=== PATIENT | male | born 1975 | race Caucasian/White ===

== ENCOUNTER 2019-12-19 10:33 | Outpatient (CLI) | payer OTHER, SELFPAY ==
[2019-12-19 11:43] LABS: Cholesterol 124 mg/dL (0-200); HDL Direct 35 mg/dL; Triglycerides 110 mg/dL (<150)
[2019-12-19 11:54] LABS: LDL Cholesterol Direct 86 mg/dL
[2019-12-19 12:00] LABS: Alanine Aminotransferase 40 U/L (4-50); Albumin Level 4.7 g/dL (3.5-5.1); Alkaline Phosphatase 65 U/L (38-126); Aspartate Amino Transferase 31 U/L (17-59); Bilirubin,Total 0.9 mg/dL (0.2-1.3); Blood Urea Nitrogen 15 mg/dL (9-20); Calcium 9.2 mg/dL (8.4-10.2); Carbon Dioxide 24 mmol/L (22-30); Chloride 103 mmol/L (98-107); Estimated Glomerular Filt Rate > 60; Glucose 91 mg/dL (75-110); Potassium 4.3 mmol/L (3.4-5.0); Sodium 140 mmol/L (137-145)
== END 2019-12-19 10:34 | disposition home or self-care (01) ==
PROVIDERS: PCP Internal Medicine; Visit Provider Internal Medicine Cardiovascular Disease
DX: E78.5 Hyperlipidemia, unspecified (principal)
CPT/HCPCS: 36415; 80053; 80061

== ENCOUNTER 2020-09-20 09:47 | Observation (INO) | payer OTHER, SELFPAY ==
[2020-09-20] VITALS (11 sets, daily range): BP systolic 117–218; BP diastolic 72–98; PULSE 59–70; RESP 14–20; TEMP 36.3–36.6; O2SAT 95–100; BMI 32.5
--- NOTE | ~2020-09-20 | XR_ITS ---
EXAMINATION: XR chest 2V DATE: 09/20/2020 10:33 INDICATION: Anterior chest pain. TECHNIQUE: Frontal and lateral views of the chest were obtained. COMPARISON: Chest 2 views 01/22/18 FINDINGS: The chest demonstrates clear lungs without pneumonia, pleural effusion, or pneumothorax. Th e heart size is normal. IMPRESSION: 1. No acute cardiopulmonary disease. Reviewed, dictated and finalized at location B. LE R12 DEVELOPER
--- NOTE | 2020-09-20 09:57 | ECG_ITS ---
Measurements Intervals [place] Rate: 62 P: 24 UT: 158 QRS: -14 QRSD: 121 T: 12 QT: 392 QTc: 401 Interpretive Statements SINUS RHYTHM INCOMPLETE RIGHT BUNDLE BRANCH BLOCK BASELINE ARTIFACT- I, III, AVR, AVL, AVF, V1-V6 BORDERLINE ECG Electronically Signed On 09-20-2020 10:30:12 MATERIALS HANDLER by David Aguirre D.O.
[2020-09-20] MEDS: ASPIRIN 325 MG TABLET 243 MG PO (10:08)
[2020-09-20 10:09] LABS: Basophils Percent Auto 0.5 % (0.2-1.2); Eosinophils Percent Auto 0.6 % (0-4.4); Hematocrit 49.1 % (42.0-52.0); Hemoglobin 16.9 g/dL (14.0-18.0); Immature Granulocyte Absolute 0.05 K/mm3 (0.00-0.031); Immature Granulocyte Percent A 0.8 % (0-0.5); Lymphocytes Absolute Auto 1.54 K/mm3 (0.9-3.2); Lymphocytes Percent Auto 23.6 % (18.3-44.2); Mean Corpuscular HGB Conc 34.4 g/dl (32-36); Mean Corpuscular Hemoglobin 32.1 pg (26-34); Mean Corpuscular Volume 93.3 fl (80-100); Mean Platelet Volume 10.1 fl (7.4-10.4); Monocytes Absolute Auto 0.6 K/mm3 (0.1-0.6); Monocytes Percent Auto 9.8 % (2.6-8.5); Neutrophils Absolute Auto 4.2 K/mm3 (1.3-6.7); Neutrophils Percent Auto 64.7 % (45.5-73.1); Platelet Count Result 231 k/mm3 (150-375); Red Blood Count 5.26 M/mm3 (4.6-6.20); Red Cell Distribution Width 12.8 % (11.5-14.5); White Blood Count 6.5 K/mm3 (4.5-10.0)
[2020-09-20 10:19] LABS: INR 0.9; Prothrombin Time 12.5 Seconds (11.1-14.7)
[2020-09-20 10:20] LABS: Partial Thromboplastin Time 27.6 SECONDS (22.3-36.8)
[2020-09-20 10:21] LABS: Anion Gap 7 mmol/L (8-16); Blood Urea Nitrogen 18 mg/dL (9-20); Calcium 9.6 mg/dL (8.4-10.2); Carbon Dioxide 30 mmol/L (22-30); Chloride 101 mmol/L (98-107); Estimated CRCL calculation 118 ml/min; Estimated Glomerular Filt Rate > 60; Glucose 104 mg/dL (75-110); Potassium 4.2 mmol/L (3.4-5.0); Sodium 138 mmol/L (137-145)
[2020-09-20 10:33] LABS: Troponin I < 0.012 ng/mL (0.000-0.034)
--- NOTE | 2020-09-20 11:19 | ED.CHESTPAIN ---
HPI - Chest Pain General Chief Complaint: Chest Pain Stated Complaint: Chest Pain Time Seen by Provider: 09/20/20 10:03 Source: patient Mode of arrival: ambulatory Limitations: no limitations History of Present Illness HPI narrative: 45 years old white male presents with left chest pain and hot flashes today. While driving. Lasted for 2 minutes then resolve. History of intermittent palpitation for the last 2 weeks. Patient denies any fever, chills, nausea, vomiting, shortness of breath, back pain. Patient denies any stress or anxiety. Patient reports a history of [place] twice Patient also reports that a lot of men in his family of heart attack. Related Data Home Medications Medication Instructions Recorded Confirmed aspirin 81 mg tablet,delayed 81 mg PO DAILY 12/19/19 06/07/20 release nitroglycerin 0.4 mg/hr 1 patch TRANSDERM DAILY 12/19/19 06/07/20 transdermal 24 hour patch Allergies Allergy/AdvReac Type Severity Reaction Status Date / Time Penicillins Allergy Unknown unknown Verified 09/20/20 10:06 Review of Systems Review of Systems: Narrative: CONSTITUTIONAL: Denies fever, chills, or sweats. EYES: Denies visual changes, redness, or discharge. ENT: Denies rhinorrhea, congestion, sore throat, or otalgia. CARDIOVASCULAR: Chest pain RESPIRATORY: Denies cough or dyspnea. GASTROINTESTINAL: Denies abdominal pain, nausea, vomiting, or diarrhea. GENITOURINARY: Denies dysuria or hematuria. SKIN: Denies rash or itching. MUSCULOSKELETAL: Denies back pain, joint pain, or myalgia. NEUROLOGIC: Denies headache, numbness, or weakness. PSYCHIATRIC: Denies anxiety or depression. PMFSH Past Medical History Medical History Dyslipidemia Family history of coronary artery disease Hypertension Tobacco use Family History Family History Mother Hypertension Father Family history of coronary artery disease Family history of premature coronary heart disease, Onset Age: 45 Social History Social History Years smoked: 1 Smoking status: Former smoker Tobacco type: cigarettes Smoking end date: 10/12/13 Alcohol intake: never Gender identity (if verbalized by the patient): Male Exam Narrative: Exam Narrative: General appearance: Well-developed, well-nourished Skin: Normal color Head: Normocephalic, nontraumatic Eyes: Clear conjunctiva ENT: Oropharynx normal, ears normal, nose normal Neck: Supple, nontender Chest and respiratory: Airway patent, no respiratory distress, no accessory muscle use Heart: Regular rate/rhythm Abdomen: Soft, nontender, no organomegaly, quiet bowel sounds Vascular: Normal peripheral pulses, normal capillary refill. Musculoskeletal: Normal range of motion, nontender back Neurologic: Alert and oriented ?3, CLINIC OFFICE MANAGER is normal as tested, no gross motor deficit Course Course Emergency Course: Stable Consultations Consultation #1: Dr. Aguirre Date: 09/20/20 Time: 11:28 Vital Signs Vital signs: Vital Signs Pulse Rate 62 09/20/20 10:00 Respiratory Rate 19 09/20/20 10:00 Blood Pressure 141/81 H 09/20/20 10:00 Pulse Oximetry 97 09/20/20 10:00 Temperature 36.6 C 09/20/20 10:01 Pulse Rate 67 09/20/20 10:01 Respiratory Rate 18 09/20/20 10:01 Blood Pressure 218/98 H 09/20/20 10:01 Pulse Oximetry 100 09/20/20 10:01 MDM - Chest Pain MDM Narrative Medical decision making narrative: Patient presents with chest pain, palpitation. Strong family history of coronary artery disease, patient had history of [place] twice in the past. Raises the suspicious for coronary artery synd
[2020-09-20] MEDS: MORPHINE SULFATE (*CRX) 4 MG/ML INJ IV PUSH (11:35)
--- NOTE | 2020-09-20 11:35 | PC.NURSE ---
Per EDP VORB no Nitro paste needed at this time. Patient is chest pain free, and to hold medication until chest pain occurs.
[2020-09-20] MEDS: ONDANSETRON INJ 4 MG/2 ML VIAL IV PUSH (11:36)
[2020-09-20] MEDS: ENOXAPARIN 120 MG/0.8 ML SYRINGE 110 MG SUB-Q (11:36)
[2020-09-20 12:07] LABS: Cholesterol 223 mg/dL (0-200); HDL Direct 37 mg/dL; Triglycerides 233 mg/dL (<150)
[2020-09-20 12:18] LABS: LDL Cholesterol Direct 135 mg/dL
--- NOTE | 2020-09-20 12:22 | PM.CNCAR ---
Assessment and Plan Assessment and plan (1) Hypertension: Code(s): I10 - Essential (primary) hypertension Status: Acute Assessment and Plan: Stable. (2) Dyslipidemia: Code(s): E78.5 - Hyperlipidemia, unspecified Status: Acute Assessment and Plan: Obtain lipid panel. If high, will change Simvastatin to Atorvastatin 80 mg daily. (3) Chest pain: Code(s): R07.9 - Chest pain, unspecified Status: Acute Assessment and Plan: Had chest discomfort associated with feeling warmth/palpitations/lightheadedness which could be vasovagal episode or arrhythmia. First set of troponin and EKG are normal. Continue with serial troponins. If negative, obtain stress echo in morning. History of Present Illness History of Present Illness Consult date/time: 09/20/20 12:22 Reason for consult: Chest pain. Patient is a 45 yr old man who is my regular cardiology patient who presents for a follow up visit regarding his cardiovascular status. He has a history of hypertension, dyslipidemia, family history of CAD. Reports that this morning he felt palpitations associated with chest pressure and feeling warmth and got lightheaded while driving. 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 Currently he is resting comfortably in ED. No more symptoms. EKG, CXR, and first set of troponin are unremarkable. He can walk 1 mile without any problems. Denies orthopnea, PND, edema, palpitations. Echo (EF 55-60%, trace PI.) - 07/25/2015 ELECTROPHYSIOLOGY: EKG (Sinus rhythm, RBBB.) - 08/10/2017 EKG (Sinus rhythm, IRBBB, borderline T wave inferior leads.) - 07/05/2015 STRESS TESTS: MPI (Treadmill nuclear: Negative for ischemia; exercised for 11 minutes.) - 08/10/2017 ETT (Negative for ischemia; exercised for 10 min, 38 seconds.) - 07/25/2015 Reason For Visit: Chest Pain Review of Systems Constitutional: Constitutional: Denies chills, Denies fatigue and Denies fever(s) Cardiovascular: Cardiovascular: Reports as per HPI, Reports chest pain, Reports irregular heart rhythm, Denies leg edema and Denies dyspnea on exertion Respiratory: Respiratory: Reports as per HPI and Denies dyspnea on exertion Gastrointestinal: Gastrointestinal: Reports as per HPI and Denies abdominal pain Genitourinary: Genitourinary: Reports as per HPI and Denies dysuria Musculoskeletal: Musculoskeletal: Reports as per HPI Neurologic: Reports as per HPI, Reports dizziness and Denies syncope [facility] Past Medical History Medical History Dyslipidemia Family history of coronary artery disease Hypertension Tobacco use Family History Family History Mother Hypertension Father Family history of coronary artery disease Family history of premature coronary heart disease, Onset Age: 45 Social History Social History Years smoked: 1 Smoking status: Former smoker Tobacco type: cigarettes Smoking end date: 10/12/13 Alcohol intake: never Gender identity (if verbalized by the patient): Male Meds Home Medications and Allergies Home Medications Medication Instructions Recorded Confirmed Type aspirin 81 mg tablet,delayed 81 mg PO DAILY 12/19/19 06/07/20 History release nitroglycerin 0.4 mg/hr 1 patch TRANSDERM DAILY 12/19/19 06/07/20 History transdermal 24 hour patch amlodipine 2.5 mg tablet See Rx Instructions .ROUTE 07/09/20 Rx .COMPLEX #30 tablet metoprolol succinate 25 mg See Rx Instructions .ROUTE 08/31/20 Rx tablet,extended release 24 hr .COMPLEX #30 tablet simvastatin 40 mg tablet See Rx Instructions .ROUTE 08/31/20 Rx .COMPLEX #30 tablet Allergies Allergy/AdvReac Type Severity Reaction Status Date / Time Penicillins Allergy Unknown unknown Verified 09/20/20 10:06 Vital Signs Vital Signs - 24 hr 09/20/20 10:00 09/20/20 10:01 09/20/20 10:41 Temperature 97.9 F
--- NOTE | 2020-09-20 13:00 | PM.IMHP ---
H&P: HPI History of Present Illness Date/Time: 09/20/20 13:00 Chief complaint: Chest Pain Narrative: Jose Rocha is a 45-year-old male with history of non STEMI in September 2010 in which he was found to have nonocclusive plaquing on subsequent cardiac catheterization, dyslipidemia, and hypertension who presented to the emergency department earlier today from home for evaluation of chest pain. For the last 1 week or so he has had intermittent discomfort in his midsternal and left chest region which he describes as a pressure-like sensation. He sees no pattern to when they occur and he has not noticed any significant aggravating or alleviating factors. This morning while driving he had another episode, associated with feelings of warmth, lightheadedness, and diaphoresis. With further questioning he does mention having gained some weight recently, and he is wondering if perhaps he may have sleep apnea as he does snore and will occasionally wake up gasping for air. In fact he is been increasingly more tired during the day and for the last couple of weeks he has been drinking a red bull most mornings to help with his sleepiness. He has not noticed any overt palpitations or feelings of racing heart. No exertional chest pain or shortness of breath. He denies nausea and vomiting. No pleuritic pain or lower extremity edema. Review of Systems Review of Systems: Narrative: Twelve systems were reviewed with pertinent positives and negatives as per HPI. Except as documented, all other systems were reviewed and are negative. [facility] Past Medical History Medical History (Updated 09/20/20 @ 22:33 by Zahra Kaur PA-C) Dyslipidemia Hypertension Non-occlusive coronary artery disease (~09/2010) Admitted 10/04/2010 with non STEMI. Cardiac catheterization showed mild nonocclusive plaquing requiring no intervention but medical management. He had a negative exercise stress test in 07/2015 and 07/2017. Surgical History Surgical History (Updated 09/20/20 @ 13:45 by Zahra Kaur PA-C) History of cardiac catheterization (~09/2010) Mild nonocclusive plaquing with approximately 20% stenosis in the proximal LAD and circumflex with mild anterolateral hypokinesis and an EF of 60%. Family History Family History Mother Hypertension Family history of coronary artery disease Father Family history of coronary artery disease Family history of premature coronary heart disease, Onset Age: 45 Social History Social History (Updated 09/20/20 @ 22:31 by Zahra Kaur PA-C) Social History: Surrogate decision maker: Madai Rocha, . Code status: Full code. Smoking status: Former smoker Tobacco type: cigarettes Smoking end date: 10/12/13 Alcohol intake: never Substance use: never Additional living arrangements comments: Lives in [place] with his and their children. Additional occupation/education comments: Works in [employer] and [employer]. Gender identity (if verbalized by the patient): Male Spiritual care concerns: No Meds Home Medications and Allergies Home Medications Medication Instructions Recorded Confirmed Type aspirin 81 mg tablet,delayed 81 mg PO DAILY 12/19/19 06/07/20 History release nitroglycerin 0.4 mg/hr 1 patch TRANSDERM DAILY 12/19/19 06/07/20 History transdermal 24 hour patch amlodipine 2.5 mg PO DAILY 09/20/20 09/20/20 History metoprolol succinate 25 mg PO DAILY 09/20/20 09/20/20 History simvastatin 40 mg PO DAILY 09/20/20 09/20/20 History Allergies Allergy/AdvReac Type Severity Reaction Status Date / Time Penicillins Allergy Unknown unknown Verified 09/20/20 10:06 Vital Signs Vital Signs - 24 hr 09/20/20 10:00 09/20/20 10:01 09/20/20 10:41 Temperature 97.9 F Pulse Rate 62 67 60 Respiratory Rate 19 18 20 Blood Pressure 141/81 H 218/98 H 137/88 Pulse Oximetry 97 99 97 1
[2020-09-20 14:58] LABS: Alanine Aminotransferase 51 U/L (4-50); Albumin Level 4.3 g/dL (3.5-5.1); Alkaline Phosphatase 61 U/L (38-126); Aspartate Amino Transferase 40 U/L (17-59); Bilirubin,Total 0.7 mg/dL (0.2-1.3); Magnesium 2.1 mg/dL (1.6-2.3)
[2020-09-20 15:10] LABS: Troponin I < 0.012 ng/mL (0.000-0.034)
[2020-09-20 17:02] LABS: Troponin I < 0.012 ng/mL (0.000-0.034)
[2020-09-21] VITALS (10 sets, daily range): BP systolic 131–140; BP diastolic 63–89; PULSE 59–75; RESP 16–18; TEMP 36.7–37.2; O2SAT 95–98
--- NOTE | 2020-09-21 08:00 | EST_ITS ---
Patient Info Name: Jose Rocha Age: 45 years : 1975 Gender: Male Ht: 72 in Wt: 239 lbs BSA: 2.38 m2 HR: 59 bpm BP: 125 / 65 mmHg Heart Rhythm: Sinus Rhythm Exam Date: 09/21/2020 8:12 AM Exam Location: [facility] Patient Status: Inpatient Admit Date: 09/20/2020 Staff Ordering Physician: David Aguirre DO Woodwork Salvage Inspector: Miri Murphy RDCS Attending Provider: Karen Anderson MD Exercise Technologist: Karis Roberto RDCS Exercise Physician: David Aguirre DO Exam Type: CA stress echo Study Info Indications R07.89 - Other chest pain Treadmill exercise stress echocardiogram is performed. Summary 1. 1. Negative Kirt exercise stress test for ischemic ST changes by ECG criteria. 2. 2. Good functional capacity, achieving 12 METs of workload. 3. 3. Hypertensive response to exercise. 4. 4. Appropriate HR response to exercise. 5. 5. Appropriate HR recovery at 1 minute post exercise. 6. 6. Negative stress echocardiogram for ischemia by wall motion analysis. 7. 7. Patient informed of the above results. Stress Echo Findings Left Ventricle Appropriate increase in LV endocardial thickening with systole. Appropriate augmentation of contractility with systole. No wall motion abnormality. Left Ventricle Normal LV systolic function, no wall motion abnormality. Protocol: Kirt Stress ECG Details Stage: REST Duration (min): 3 min : 11 sec Speed (mph): 0.0 Grade (%): 0 HR (bpm): 60 SBP (mmHg): 125 DBP (mmHg): 65 METS: --- Stage: REST Duration (min): 9 min : 49 sec Speed (mph): 0.0 Grade (%): 0 HR (bpm): 70 SBP (mmHg): 125 DBP (mmHg): 65 METS: --- Stage: STAGE 1 Duration (min): 1 min : 0 sec Speed (mph): 1.7 Grade (%): 10 HR (bpm): 100 SBP (mmHg): 125 DBP (mmHg): 65 METS: --- Stage: STAGE 1 Duration (min): 2 min : 0 sec Speed (mph): 1.7 Grade (%): 10 HR (bpm): 101 SBP (mmHg): 125 DBP (mmHg): 65 METS: --- Stage: STAGE 1 Duration (min): 3 min : 0 sec Speed (mph): 1.7 Grade (%): 10 HR (bpm): 107 SBP (mmHg): 164 DBP (mmHg): 68 METS: --- Stage: STAGE 2 Duration (min): 1 min : 0 sec Speed (mph): 2.5 Grade (%): 12 HR (bpm): 114 SBP (mmHg): 164 DBP (mmHg): 68 METS: --- Stage: STAGE 2 Duration (min): 2 min : 0 sec Speed (mph): 2.5 Grade (%): 12 HR (bpm): 115 SBP (mmHg): 159 DBP (mmHg): 71 METS: --- Stage: STAGE 2 Duration (min): 3 min : 0 sec Speed (mph): 2.5 Grade (%): 12 HR (bpm): 122 SBP (mmHg): 159 DBP (mmHg): 71 METS: --- Stage: STAGE 3 Duration (min): 1 min : 0 sec Speed (mph): 3.4 Grade (%): 14 HR (bpm): 127 SBP (mmHg): 240 DBP (mmHg): 120 METS: --- Stage: STAGE 3 Duration (min): 2 min : 0 sec Speed (mph): 3.4 Grade (%): 14 HR (bpm): 134 SBP (mmHg): 209 DBP (mmHg): 75 METS: --- Stage: STAGE 3 Dur
--- NOTE | 2020-09-21 08:08 | PC.NURSE ---
0750 - Pt off unit to Stress testing
[2020-09-21 08:12] LABS: Anion Gap 4 mmol/L (8-16); Blood Urea Nitrogen 17 mg/dL (9-20); Calcium 9.1 mg/dL (8.4-10.2); Carbon Dioxide 25 mmol/L (22-30); Chloride 106 mmol/L (98-107); Estimated CRCL calculation 122 ml/min; Estimated Glomerular Filt Rate > 60; Glucose 107 mg/dL (75-110); Magnesium 2.2 mg/dL (1.6-2.3); Phosphorus 2.7 mg/dL (2.5-4.5); Potassium 4.4 mmol/L (3.4-5.0); Sodium 135 mmol/L (137-145)
--- NOTE | 2020-09-21 08:32 | PM.PNCARD ---
Progress Note: A&P Assessment and Plan (1) Hypertension: Code(s): I10 - Essential (primary) hypertension Status: Acute Assessment and Plan: Mildly high and had hypertensive response to exercise on stress echo. Increase Amlodipine 5 mg daily. (2) Dyslipidemia: Code(s): E78.5 - Hyperlipidemia, unspecified Status: Acute Assessment and Plan: Change Simvastatin to Atorvastatin 80 mg daily for high cholesterol. (3) Chest pain: Code(s): R07.9 - Chest pain, unspecified Status: Acute Assessment and Plan: Had chest discomfort associated with feeling warmth/palpitations/lightheadedness which could be vasovagal episode or arrhythmia, or stress related. He is ruled out for ACS/WV by troponins and EKG. Stress echo this morning is normal with a hypertensive response to exercise. May d/c home from cardiology standpoint to f/u with me in 3 weeks. Subjective Date/time seen: 09/21/20 08:32 Denies any chest pain or sob. Exam Const: General: cooperative, healthy appearing and comfortable Resp: Auscultation: clear to auscultation bilaterally, no crackles, no rales, no rhonchi and no wheezes Cardio: Rate: regular rate Rhythm: regular rhythm Heart sounds: no murmurs Peripheral pulses: posterior tibial pulses present and dorsalis pedis present GI: GI Palp: No abdominal tenderness and Yes Soft to palpation Neuro: General: oriented to person, oriented to place and oriented to time Extrem: Right lower extremity: no edema Left lower extremity: no edema Objective Data Vital Signs Vital Signs: Vital Signs - 24 hr 09/20/20 10:00 09/20/20 10:01 09/20/20 10:41 Temperature 97.9 F Pulse Rate 62 67 60 Respiratory Rate 19 18 20 Blood Pressure 141/81 H 218/98 H 137/88 Pulse Oximetry 97 99 97 09/20/20 10:46 09/20/20 11:16 09/20/20 11:31 Temperature Pulse Rate 60 63 59 L Respiratory Rate 16 20 17 Blood Pressure 149/92 H 159/93 H 149/84 H Pulse Oximetry 98 95 95 09/20/20 12:22 09/20/20 13:00 09/20/20 16:00 Temperature 97.3 F L Pulse Rate 68 70 63 Respiratory Rate 16 14 16 Blood Pressure 131/86 145/85 H 148/76 H Pulse Oximetry 96 100 95 09/20/20 18:00 09/20/20 20:00 09/21/20 00:00 Temperature 97.6 F 98.5 F Pulse Rate 69 66 61 Respiratory Rate 18 16 Blood Pressure 117/72 131/63 Pulse Oximetry 100 95 09/21/20 02:00 09/21/20 04:00 09/21/20 05:00 Temperature 98.1 F Pulse Rate 63 59 L 64 Respiratory Rate 17 Blood Pressure 135/68 Pulse Oximetry 95 09/21/20 06:00 Temperature Pulse Rate 59 L Respiratory Rate Blood Pressure Pulse Oximetry Intake/Output Intake/Output: Intake & Output 09/18/20 09/19/20 09/20/20 09/21/20 23:59 23:59 23:59 23:59 Intake Total 800 Balance 800 Meds/Results Medications: Active Medications Generic Name Dose Route Start Last Admin Trade Name Freq PRN Reason Stop Dose Admin Amlodipine Besylate 5 mg 09/21/20 09:00 Amlodipine Besylate 5 Mg Tablet PO QAM [facility] Aspirin 81 mg 09/21/20 08:00 Aspirin 81 Mg Chewable Tablet PO DAILY@0800 [facility] Aspirin 81 mg 09/21/20 09:00 Aspirin 81 Mg Enteric Tablet PO DAILY [facility] Atorvastatin Calcium 80 mg 09/21/20 09:00 Atorvastatin 40 Mg Tablet PO DAILY [facility] Acetaminophen 1,000 mg in 100 mls @ 400 mls/hr 09/20/20 11:30 Ofirmev 1,000 Mg Ivpb IVPB 09/21/20 11:31 Q6H PRN Mild Pain (1-3) or Fever Metoprolol Succinate 25 mg 09/21/20 09:00 Metoprolol Succinate Ext Rel 25 Mg Tabcr PO QAM [facility] Metoprolol Succinate 25 mg 09/21/20 09:00 Metoprolol Succinate Ext Rel 25 Mg Tabcr PO DAILY [facility] Nitroglycerin 1 patch 09/21/20 09:00 Nitroglycerin 0.4 Mg/Hr Patch TRANSDERM DAILY [facility] Radiology Results: ITS Impressions Chest X-Ray 09/20/20 10:34 IMPRESSION: 1. No acute cardiopulmonary disease. Labs Labs: Laboratory Results - last 24 hr 09/20/2009/11
[2020-09-21 08:48] LABS: Thyroid Stimulating Hormone Reflex 0.954 uIU/mL (0.465-4.68)
[2020-09-21] MEDS: amLODIPine BESYLATE 2.5 MG TABLET PO (10:53)
[2020-09-21] MEDS: ATORVASTATIN 40 MG TABLET 80 MG PO (11:20)
[2020-09-21] MEDS: ASPIRIN 81 MG ENTERIC TABLET PO (11:21)
[2020-09-21] MEDS: METOPROLOL SUCCINATE EXT REL 25 MG TABCR PO (11:21)
--- NOTE | 2020-09-21 11:35 | PC.NURSE ---
late entry for 919. Pt returned to room.
--- NOTE | 2020-09-21 14:30 | PM.DS ---
DS: Admitting Diagnosis Admitting Diagnosis Admitting Diagnosis: Chest Pain DS: Discharge Diagnosis Discharge Diagnosis (1) Chest pain: Code(s): R07.9 - Chest pain, unspecified Status: Acute (2) Hypertension: Code(s): I10 - Essential (primary) hypertension Status: Acute (3) Dyslipidemia: Code(s): E78.5 - Hyperlipidemia, unspecified Status: Acute (4) Suspected sleep apnea: Code(s): R29.818 - Other symptoms and signs involving the nervous system Status: Acute DS: Summary Hospital Course Reason for hospitalization: 45yo male with hx of CAD and PR in 2009 here for chest pain. Please see H&P for details. Hospital Course: Patient presents to the emergency department with a one-week history of intermittent chest pain. EKG showing incomplete right bundle branch block but no acute findings. Chest x-ray was clear. CBC, PT, PTT, and BMP were normal. Troponin was negative x3. ALT 51 otherwise LFTs normal. TSH normal. Triglycerides 233 with cholesterol 223 and LDL 135. HDL 37. Simvastatin changed to atorvastatin. Blood pressure was elevated on admission and antihypertensive medications were adjusted. Cardiology was consulted. He was treated with aspirin. He was given a dose of Lovenox and admitted for further care. He underwent a stress echocardiogram which was normal. His apnea link was positive. Discussed with Cardiology. Plan discharge today. Status at Discharge Cognitive/behavioral status at discharge: PATIENT IS STABLE FOR DISCHARGE Time Spent with Patient Time attestation: Total time spent providing and/or coordinating discharge services:38 MINUTES Time spent: Greater than 30 minutes Exam Narrative: Exam Narrative: AF 98.9 134/66 72 16 95% ra Gen - NARD Chest - CTA bilaterally, nml RR CV - RRR S1/S2 Abd - Soft, NT/ND, Positive BS Ext - No pedal edema Neuro - Alert and oriented. Nonfocal exam. Psych - Nml mood and affect Skin - Warm and dry DS: Data Data Completed and Pending Labs on day of discharge: Labs from last 24 hours 09/21/20 09/21/20 09/20/20 07:36 07:36 16:32 Sodium 135 L Potassium 4.4 Chloride 106 Carbon Dioxide 25 Anion Gap 4 L BUN 17 Creatinine 0.90 Estim Creat Clear Calc 122 Estimated GFR > 60 Glucose 107 Calcium 9.1 Phosphorus 2.7 Magnesium 2.2 Total Bilirubin Direct Bilirubin AST ALT Alkaline Phosphatase Troponin I < 0.012 Total Protein Albumin TSH (Reflex) 0.954 09/20/20 09/20/20 14:35 14:35 Sodium Potassium Chloride Carbon Dioxide Anion Gap BUN Creatinine Estim Creat Clear Calc Estimated GFR Glucose Calcium Phosphorus Magnesium 2.1 Total Bilirubin 0.7 Direct Bilirubin 0.0 AST 40 ALT 51 H Alkaline Phosphatase 61 Troponin I < 0.012 Total Protein 8.0 Albumin 4.3 TSH (Reflex) Discharge Plan Discharge Attending physician on discharge: Sabino Zamudio Consulting providers: David Aguirre Discharging Clinician: Sabino Zamudio Anticipated Discharge Date/Time: 09/21/20 14:38 Patient Disposition: Home, Self-Care Activity: as tolerated Diet: heart healthy Discharge Instructions: Please avoid large gathering, wear face coverings in public and practice social distance. Check blood pressure 1 to 2 times a day. Record and bring into your doctor for review. Call your doctor if your blood pressure is greater than 180/110. Contact your doctor or come to the Emergency Room if you have any recurrent chest pain or other worrisome symptoms. Avoid NSAIDs (ibuprofen, naproxen, Aleve). Tylenol is safe to take. Follow-up with your doctor in 1-2 weeks. Please call for appointment. Patient Instructions: Antibiotic Form Stand Alone Forms: General Discharge Information Follow-up/Referrals: David Aguirre DO [Physician] - Call for Appointment Jose Singh DO [Sindhu
== END 2020-09-21 15:54 | disposition home or self-care (01) ==
LOC: ANHED 11:25 → ANHCPC 09-21 14:23
PROVIDERS: Internal Medicine Cardiovascular Disease; Physician Assistant; Admitting Provider Family Medicine; Emergency Provider Emergency Medicine; PCP Internal Medicine; Visit Provider Internal Medicine
DX: R07.9 Chest pain, unspecified (principal); I10 Essential (primary) hypertension; E78.5 Hyperlipidemia, unspecified; R29.818 Other symptoms and signs involving the nervous system; I25.10 Atherosclerotic heart disease of native coronary artery without angina pectoris; I25.2 Old myocardial infarction; Z87.891 Personal history of nicotine dependence
CPT/HCPCS: 36415; 71046; 80048; 80061; 80076; 83735; 84100; 84443; 84484; 85025; 85610; 85730; 93005; 93351; 94762; 96372; 96374; 96375; 99285; A9270; G0378; G0379; J1650; J2270; J2405

== ENCOUNTER 2021-02-19 08:13 | Outpatient (CLI) | payer OTHER, SELFPAY ==
--- NOTE | 2021-03-04 13:16 | WPDHOMESLEEP ---
Sleep Study - Home Unattended Date of Study: 02/19/21 Ordering Provider: David Aguirre DO Interpreting Provider: Nasra Blas MD Home Sleep Study Type: Apnea Link Air Height: 1.83 m Weight: 107.955 kg Body Mass Index: 32.3 Neck Circumference (inches): 17.5 Mercer: 7 Reason for Sleep Study Loud snoring, especially when his weight is high Sleep History Jose Rocha is a 46 year old man who snores loudly especially when his weight is higher. He says above 250 lb he really has a problem. He occasionally awakens from sleep feeling short of breath. He does not awaken at night with heartburn, belching or coughing. He occasionally snores and occasionally it is loud enough that others complain about it. He does not have trouble sleep with a cold. He now weighs 235 lb. He does not have trouble sleeping with a cold. He rarely wakes up gasping for breath at night. He occasionally has breathing problems at night observed by others. He rarely sweats excessively at night. He rarely notices his heart pounding or beating irregularly at night. He rarely falls asleep in the day, never involuntarily and he never falls asleep while driving. He does not have loss of muscle tone was strong emotion. He does not have daytime difficulties due to excessive sleepiness. 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 He does not feel paralyzed on waking or falling asleep. He does not have vivid dreamlike scenes upon awakening or falling asleep. He does not feel afraid to go to sleep. Rarely has nightmares. He occasionally remembers his dreams. He frequently has racing thoughts. He does not feel sad or depressed. On occasion he has anxiety. He does not have muscular tension. He does not notice parts of his body jerking and he does not kick at night. He rarely has crawling and aching feelings in his legs. He does not have any kind of leg pain at night. He denies morning jaw pain and denies grinding his teeth during sleep. He is not bothered by pain during the day and is not awakened by pain during the night. He does not wake up feeling stiff in the morning with sore achy muscles are pain in the neck and spine. Normal bedtime is between 10:00 p.m. and 11:00 p.m., falling asleep within 15-30 minutes. Sometimes he wakes once or twice at night. On occasion he does not wake at all. He uses the bathroom when he wakes up. Sometimes he is able to return to sleep in 5 minutes however can take 20-30 minutes. He does not take naps. Habits: Quit smoking 6 years ago. He drinks caffeinated soda. No alcohol or recreational drugs. [facility] Past Medical History Medical History (Updated 03/04/21 @ 13:56 by Nasra Blas MD) Dyslipidemia Hypertension Non-occlusive coronary artery disease (~09/2010) Admitted 10/04/2010 with non STEMI. Cardiac catheterization showed mild nonocclusive plaquing requiring no intervention but medical management. He had a negative exercise stress test in 07/2015 and 07/2017. Surgical History Surgical History History of cardiac catheterization (~09/2010) Mild nonocclusive plaquing with approximately 20% stenosis in the proximal LAD and circumflex with mild anterolateral hypokinesis and an EF of 60%. Family History Family History Mother Hypertension Family history of coronary artery disease Father Family history of coronary artery disease Family history of premature coronary heart disease, Onset Age: 45 Social History Social History Social History: Surrogate decision maker: Madai Rocha, . Code status: Full code. Smoking status: Former smoker Tobacco type: cigarettes Smoking end date: 10/12/13 Alcohol intake: never Substance use: never Additional living arrangements comments: Lives in [place] with his and t
[2021-03-04 14:00] VITALS: BMI 32.3
== END 2021-02-19 08:14 | disposition home or self-care (01) ==
LOC: ANHCSM 08:14
PROVIDERS: PCP Internal Medicine; Visit Provider Internal Medicine Cardiovascular Disease
DX: G47.10 Hypersomnia, unspecified (principal); G47.33 Obstructive sleep apnea (adult) (pediatric)
CPT/HCPCS: 95806

== ENCOUNTER 2022-07-30 08:59 | Outpatient (CLI) | payer OTHER, SELFPAY ==
[2022-07-30 18:41] LABS: Alanine Aminotransferase 41 U/L (6-50); Albumin Level 4.7 g/dL (3.5-5.1); Alkaline Phosphatase 74 U/L (38-126); Anion Gap 14 mmol/L (8-16); Aspartate Amino Transferase 31 U/L (17-59); Bilirubin,Total 0.9 mg/dL (0.2-1.3); Blood Urea Nitrogen 15 mg/dL (9-20); Calcium 9.4 mg/dL (8.4-10.2); Carbon Dioxide 21 mmol/L (22-30); Chloride 104 mmol/L (98-107); Cholesterol 154 mg/dL (0-200); Estimated Glomerular Filt Rate > 60; Glucose 105 mg/dL (65-110); HDL Direct 31 mg/dL; Potassium 3.7 mmol/L (3.4-5.0); Sodium 139 mmol/L (137-145); Triglycerides 160 mg/dL (<150)
[2022-07-30 18:42] LABS: Basophils Percent Auto 0.3 % (0.2-1.2); Eosinophils Absolute Auto 0.1 K/mm3 (0-0.3); Eosinophils Percent Auto 0.9 % (0-4.4); Hematocrit 47.1 % (42.0-52.0); Hemoglobin 15.8 g/dL (14.0-18.0); Immature Granulocyte Absolute 0.02 K/mm3 (0.00-0.031); Immature Granulocyte Percent A 0.3 % (0-0.5); Lymphocytes Percent Auto 21.9 % (18.3-44.2); Mean Corpuscular HGB Conc 33.5 g/dl (32-36); Mean Corpuscular Hemoglobin 31.9 pg (26-34); Mean Corpuscular Volume 95.2 fl (80-100); Mean Platelet Volume 10.8 fl (7.4-10.4); Monocytes Absolute Auto 0.6 K/mm3 (0.1-0.6); Monocytes Percent Auto 8.9 % (2.6-8.5); Neutrophils Absolute Auto 4.3 K/mm3 (1.3-6.7); Neutrophils Percent Auto 67.7 % (45.5-73.1); Platelet Count Result 244 k/mm3 (150-375); Red Blood Count 4.95 M/mm3 (4.6-6.20); Red Cell Distribution Width 12.7 % (11.5-14.5); White Blood Count 6.4 K/mm3 (4.5-10.0)
[2022-07-30 18:55] LABS: LDL Cholesterol Direct 85 mg/dL
[2022-07-30 19:01] LABS: Vitamin D 25 Hydroxy 39.5 ng/mL
== END 2022-07-30 09:00 | disposition home or self-care (01) ==
LOC: ANHGOSHLAB 09:02
PROVIDERS: PCP Family Medicine; Visit Provider Nurse Practitioner
DX: E55.9 Vitamin D deficiency, unspecified (principal); E78.5 Hyperlipidemia, unspecified; I10 Essential (primary) hypertension
CPT/HCPCS: 36415; 80053; 80061; 82306; 85025

== ENCOUNTER → 2022-08-18 15:32 | Outpatient (CLI) | payer OTHER, SELFPAY ==
--- NOTE | ~2022-08-18 | XR_ITS ---
EXAMINATION: XR chest 2V DATE: 08/18/2022 15:43 INDICATION: Cough, unspecified. TECHNIQUE: Frontal and lateral views of the chest were obtained. COMPARISON: Chest 2 views 09/20/2020 FINDINGS: The chest demonstrates clear lungs without pneumonia, pleural effusion, or pneumothorax. Th e heart size is normal. IMPRESSION: 1. No acute cardiopulmonary disease. Reviewed, dictated and finalized at location A. 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
== END ==
PROVIDERS: PCP Nurse Practitioner; Visit Provider Nurse Practitioner
DX: R05.9 Cough, unspecified (principal)
CPT/HCPCS: 71046

== ENCOUNTER 2023-08-17 08:41 | Outpatient (CLI) | payer OTHER, SELFPAY ==
[2023-08-17 19:34] LABS: Basophils Percent Auto 0.6 % (0.2-1.2); Eosinophils Absolute Auto 0.1 K/mm3 (0-0.3); Hematocrit 48.8 % (42.0-52.0); Hemoglobin 16.1 g/dL (14.0-18.0); Immature Granulocyte Absolute 0.02 K/mm3 (0.00-0.031); Immature Granulocyte Percent A 0.3 % (0-0.5); Lymphocytes Percent Auto 21.4 % (18.3-44.2); Mean Corpuscular Hemoglobin 31.3 pg (26-34); Mean Corpuscular Volume 94.8 fl (80-100); Mean Platelet Volume 10.9 fl (7.4-10.4); Monocytes Absolute Auto 0.7 K/mm3 (0.1-0.6); Monocytes Percent Auto 9.3 % (2.6-8.5); Neutrophils Absolute Auto 4.7 K/mm3 (1.3-6.7); Neutrophils Percent Auto 67.4 % (45.5-73.1); Platelet Count Result 247 k/mm3 (150-375); Red Blood Count 5.15 M/mm3 (4.6-6.20); Red Cell Distribution Width 13.2 % (11.5-14.5)
[2023-08-17 20:06] LABS: Vitamin D 25 Hydroxy 41.4 ng/mL
[2023-08-17 20:54] LABS: Alanine Aminotransferase 66 U/L (6-50); Albumin Level 4.7 g/dL (3.5-5.1); Alkaline Phosphatase 87 U/L (38-126); Anion Gap 8 mmol/L (8-16); Aspartate Amino Transferase 57 U/L (17-59); Bilirubin,Total 0.9 mg/dL (0.2-1.3); Blood Urea Nitrogen 13 mg/dL (9-20); Calcium 9.5 mg/dL (8.4-10.2); Carbon Dioxide 26 mmol/L (22-30); Chloride 104 mmol/L (98-107); Cholesterol 189 mg/dL (0-200); Estimated Glomerular Filt Rate > 60; Glucose 96 mg/dL (65-110); HDL Direct 37 mg/dL; Potassium 4.6 mmol/L (3.4-5.0); Sodium 138 mmol/L (137-145); Triglycerides 194 mg/dL (<150)
[2023-08-17 21:04] LABS: LDL Cholesterol Direct 98 mg/dL
[2023-08-17 21:23] LABS: Prostate Specific Antigen 0.4 ng/mL (< OR = 4.0); Thyroid Stimulating Hormone 0.823 uIU/mL (0.465-4.680)
[2023-08-17 23:12] LABS: Hemoglobin A1C 5.3 % (<5.7)
== END 2023-08-17 08:42 | disposition home or self-care (01) ==
LOC: ANHGOSHLAB 08:42
PROVIDERS: PCP Nurse Practitioner; Visit Provider Nurse Practitioner Family
DX: Z13.29 Encounter for screening for other suspected endocrine disorder (principal); Z13.220 Encounter for screening for lipoid disorders; R73.03 Prediabetes; I10 Essential (primary) hypertension; E55.9 Vitamin D deficiency, unspecified; Z12.5 Encounter for screening for malignant neoplasm of prostate
CPT/HCPCS: 36415; 80053; 80061; 82306; 83036; 84153; 84443; 85025; G0103

== ENCOUNTER 2024-01-20 13:13 | Outpatient (CLI) | payer OTHER, SELFPAY ==
--- NOTE | 2024-01-20 13:22 | ECHO_ITS ---
Patient Info Name: Jose Rocha Age: 48 years : 1975 Gender: Male Ht: 72 in Wt: 250 lbs BSA: 2.44 m2 HR: 77 bpm BP: 131 / 87 mmHg Heart Rhythm: Sinus Rhythm Technical Quality: Good Exam Date: 01/20/2024 1:25 PM Exam Location: Echo Lab Patient Status: Outpatient Admit Date: 01/20/2024 Staff Ordering Physician: David Aguirre DO Wax Pumper: Bre Dhillon RDCS Attending Provider: David Aguirre DO Referring Physician: Timothy ABURTO; Exam Type: CA echo doppler color flow Study Info Indications I10 - Essential (primary) hypertension Complete two-dimensional, color flow and Doppler transthoracic echocardiogram is performed. Summary 1. Complete two-dimensional, color flow and Doppler transthoracic echocardiogram is performed. 2. Left ventricular chamber dimension is normal. 3. Left ventricular systolic function is normal, estimated at 60-65%. 4. There is mild concentric increased left ventricular wall thickness. 5. The left ventricular diastolic function is grade II diastolic dysfunction. 6. E/e' 8 is minimally elevated. 7. There is trace tricuspid valve regurgitation. 8. No pulmonary hypertension, estimated pulmonary arterial systolic pressure is 24 mmHg. Left Ventricle E/e' 8 is minimally elevated. Left ventricular chamber dimension is normal. Left ventricular systolic function is normal, estimated at 60-65%. There is mild concentric increased left ventricular wall thickness. The left ventricular diastolic function is grade II diastolic dysfunction. Right Ventricle Right ventricular systolic function is normal and with normal TAPSE 2.1 cm. Right ventricular chamber dimension is normal. Left Atria Left atrial chamber dimension is normal. Right Atria Right atrial chamber dimension is normal. Aortic Valve The aortic valve is trileaflet. There is no aortic valve stenosis. There is no aortic valve regurgitation. Pulmonic Valve There is no pulmonic regurgitation. Mitral Valve There is no mitral valve stenosis. There is no mitral valve regurgitation. Tricuspid Valve There is trace tricuspid valve regurgitation. No pulmonary hypertension, estimated pulmonary arterial systolic pressure is 24 mmHg. Pericardium/Pleural There is no pericardial effusion. Inferior Vena Cava Normal inferior vena cava with >50% collapse upon inspiration consistent with normal right atrial pressure, 5 mmHg. Aorta The aortic root size at the sinus of Valsalva is normal. Left Ventricular Outflow Tract Name Value Normal LVOT 2D LVOT Diameter 2.1 cm LVOT Doppler LVOT Peak Gradient 4 mmHg LVOT Mean Gradient 2 mmHg LVOT VTI 19 cm LVOT VTI/AV VTI Ratio 1.0 LVOT Stroke Volume 70 ml LVOT CO 4.3 l/min LVOT CI 1.7 l/min/m2 Pulmonic Valve Name Value Normal RVOT Doppler
== END 2024-01-20 13:14 | disposition home or self-care (01) ==
LOC: ANHCARD 13:15
PROVIDERS: PCP Family Medicine; Visit Provider Internal Medicine Cardiovascular Disease
DX: I10 Essential (primary) hypertension (principal)
CPT/HCPCS: 93306

== ENCOUNTER 2024-06-21 09:45 | Outpatient (CLI) | payer OTHER, SELFPAY ==
[2024-06-21 12:45] LABS: Basophils Percent Auto 0.4 % (0.2-1.2); Eosinophils Percent Auto 0.6 % (0-4.4); Hematocrit 47.9 % (42.0-52.0); Immature Granulocyte Absolute 0.02 K/mm3 (0.00-0.031); Immature Granulocyte Percent A 0.3 % (0-0.5); Lymphocytes Absolute Auto 1.51 K/mm3 (0.9-3.2); Lymphocytes Percent Auto 21.3 % (18.3-44.2); Mean Corpuscular HGB Conc 33.4 g/dl (32-36); Mean Corpuscular Hemoglobin 31.7 pg (26-34); Mean Corpuscular Volume 94.9 fl (80-100); Mean Platelet Volume 10.9 fl (7.4-10.4); Monocytes Absolute Auto 0.6 K/mm3 (0.1-0.6); Monocytes Percent Auto 8.2 % (2.6-8.5); Neutrophils Absolute Auto 4.9 K/mm3 (1.3-6.7); Neutrophils Percent Auto 69.2 % (45.5-73.1); Platelet Count Result 233 k/mm3 (150-375); Red Blood Count 5.05 M/mm3 (4.6-6.20); Red Cell Distribution Width 13.1 % (11.5-14.5); White Blood Count 7.1 K/mm3 (4.5-10.0)
[2024-06-21 13:49] LABS: Vitamin D 25 Hydroxy 28.3 ng/mL
[2024-06-21 13:55] LABS: Alanine Aminotransferase 55 U/L (6-50); Albumin Level 4.6 g/dL (3.5-5.1); Alkaline Phosphatase 93 U/L (38-126); Anion Gap 11 mmol/L (4-12); Aspartate Amino Transferase 48 U/L (17-59); Bilirubin,Total 1.2 mg/dL (0.2-1.3); Blood Urea Nitrogen 17 mg/dL (9-20); Calcium 9.2 mg/dL (8.4-10.2); Carbon Dioxide 26 mmol/L (22-30); Chloride 101 mmol/L (98-107); Cholesterol 164 mg/dL (0-200); Estimated Glomerular Filt Rate > 60; Glucose 106 mg/dL (65-110); HDL Direct 38 mg/dL; Potassium 4.2 mmol/L (3.4-5.0); Sodium 138 mmol/L (137-145); Triglycerides 207 mg/dL (<150)
[2024-06-21 14:03] LABS: Thyroid Stimulating Hormone Reflex 0.873 uIU/mL (0.465-4.68)
[2024-06-21 14:06] LABS: LDL Cholesterol Direct 86 mg/dL
[2024-06-21 14:13] LABS: Hemoglobin A1C 5.7 % (<5.7)
== END 2024-06-21 09:46 | disposition home or self-care (01) ==
LOC: ANHGOSHLAB 09:46
PROVIDERS: PCP Family Medicine; Visit Provider Family Medicine
DX: Z00.00 Encounter for general adult medical examination without abnormal findings (principal); E78.5 Hyperlipidemia, unspecified; I10 Essential (primary) hypertension; E55.9 Vitamin D deficiency, unspecified; E53.8 Deficiency of other specified B group vitamins; R73.9 Hyperglycemia, unspecified
CPT/HCPCS: 36415; 80053; 80061; 82306; 82607; 83036; 84443; 85025

== ENCOUNTER 2025-06-20 09:46 | Outpatient (CLI) | payer OTHER, SELFPAY ==
--- OUTSIDE RECORDS SUMMARY | 2025-06-20 10:56 | XMS_ITS | Clinical Summary ---
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 Gender Identity Not on file Sexual Orientation Not on file Plan of Treatment Health Maintenance Due Date Last Done Comments Colorectal Cancer Screening Colonoscopy (10 Years) 1975 Annual Physical 01/24/1980 Hepatitis C 1995 DTaP, Tdap and Td Vaccines ( 1 - Tdap) 01/24/1996 Hepatitis B Vaccines (1 of 3 - 19+ 3-dose series) 01/24/1996 COVID-19 Vaccine ( - 2023-2 5 season) 2025 Meningococcal B Vaccine Aged Out No l onger eligible based on patient's age to complete this topic Meningococcal Vaccine Aged Out No jumana laura eligible based on patient's age to complete this topic Pneumococcal Vaccine: Pediat rics (0 to 5 Years) and At-Risk Patients (6 to 49 Years) Aged Out No longer eligible b ased on patient's age to complete this topic RSV Immunizations Under 20 Months Aged Out No longer eligible based on patient's age to complete this topic
[2025-06-20 13:10] LABS: Hematocrit 47.7 % (42.0-52.0); Hemoglobin 15.7 g/dL (14.0-18.0); Immature Granulocyte Percent A 0.2 % (0-0.5); Lymphocytes Absolute Auto 1.71 K/mm3 (0.9-3.2); Mean Corpuscular HGB Conc 32.9 g/dl (32-36); Mean Corpuscular Hemoglobin 31.3 pg (26-34); Mean Corpuscular Volume 95.2 fl (80-100); Nucleated Red Blood Cells Absolute Auto 0.000 K/mm3 (0.0-0.012); Nucleated Red Blood Cells Perc 0.0 % (0.0-0.2); Platelet Count Result 252 k/mm3 (150-375); Red Blood Count 5.01 M/mm3 (4.6-6.20); White Blood Count 6.6 K/mm3 (4.5-10.0)
[2025-06-20 13:26] LABS: Alanine Aminotransferase 55 U/L (6-50); Albumin Level 4.7 g/dL (3.5-5.1); Alkaline Phosphatase 61 U/L (38-126); Anion Gap 9 mmol/L (4-12); Aspartate Amino Transferase 57 U/L (17-59); Bilirubin,Total 0.8 mg/dL (0.2-1.3); Blood Urea Nitrogen 20 mg/dL (9-20); Calcium 9.6 mg/dL (8.4-10.2); Carbon Dioxide 27 mmol/L (22-30); Chloride 104 mmol/L (98-107); Cholesterol 131 mg/dL (0-200); Estimated Glomerular Filt Rate > 60; Glucose 95 mg/dL (65-110); HDL Direct 36 mg/dL; Potassium 4.4 mmol/L (3.4-5.0); Sodium 140 mmol/L (137-145); Total Protein 7.8 g/dL (6.3-8.2); Triglycerides 80 mg/dL (<150)
[2025-06-20 13:54] LABS: Thyroid Stimulating Hormone Reflex 0.868 uIU/mL (0.465-4.68)
[2025-06-20 14:08] LABS: Prostate Specific Antigen 0.4 ng/mL (< OR = 4.0)
[2025-06-20 14:26] LABS: Vitamin B12 354.0 pg/mL (239-931)
[2025-06-20 15:58] LABS: Hemoglobin A1C 5.7 % (<5.7)
== END 2025-06-20 09:47 | disposition home or self-care (01) ==
LOC: ANHGOSHLAB 09:46
PROVIDERS: PCP Family Medicine; Visit Provider Family Medicine
DX: Z00.00 Encounter for general adult medical examination without abnormal findings (principal); Z12.5 Encounter for screening for malignant neoplasm of prostate; I10 Essential (primary) hypertension; E55.9 Vitamin D deficiency, unspecified; R73.9 Hyperglycemia, unspecified; E78.5 Hyperlipidemia, unspecified; E53.8 Deficiency of other specified B group vitamins
CPT/HCPCS: 36415; 80053; 80061; 82306; 82607; 83036; 84153; 84443; 85025; G0103

== ENCOUNTER 2025-09-27 18:57 | Emergency (ER) | payer OTHER, SELFPAY ==
--- NOTE | 2025-09-27 19:00 | ED.GENADULT ---
HPI - General Adult General Chief complaint: Upper Respiratory Infection Stated complaint: Sinus Source: patient Mode of arrival: ambulatory Limitations: no limitations History of Present Illness HPI narrative: Pt is a 50 y/o male presenting with c/o URI sx. Sx reported include rhinorrhea, congestion, postnasal drip, cough. Sx began 5-6 days ago. His son(s) have same sx. Denies any known exposure to COVID,FLU, STREP, PNA. No fevers. Tx initiated SPECIMEN BOSS includes Mucinex. No additional complaints. Related Data Home Medications ?Medication ?Instructions ?Recorded ?Confirmed ?Last Taken ?Type aspirin 81 mg tablet,delayed 81 mg PO DAILY 12/19/19 07/26/25 09/20/20 08:00 History release Allergies Allergy/AdvReac Type Severity Reaction Status Date / Time Penicillins Allergy Unknown unknown Verified 06/20/25 08:40 Review of Systems Review of Systems: CONSTITUTIONAL: Denies body aches, fever, chills, or sweats. EYES: Denies visual changes, redness, or discharge. ENT: reports rhinorrhea, congestion, denies sore throat, or otalgia. CARDIOVASCULAR: Denies chest pain, palpitations, or edema. RESPIRATORY: reports cough denies dyspnea. GASTROINTESTINAL: Denies abdominal pain, nausea, vomiting, or diarrhea. GENITOURINARY: Denies dysuria or hematuria. SKIN: Denies rash, itching, or wounds. MUSCULOSKELETAL: Denies back pain, joint pain, or myalgia. NEUROLOGIC: Denies headache, numbness, tingling, or weakness. PSYCH: Denies depression or anxiety. All systems reviewed & are unremarkable except as noted in HPI and below PMFSH Past Medical History Medical History Vitamin D deficiency Hypersomnia Non-occlusive coronary artery disease (~09/2010) Admitted 10/04/2010 with non STEMI. Cardiac catheterization showed mild nonocclusive plaquing requiring no intervention but medical management. He had a negative exercise stress test in 07/2015 and 07/2017. Dyslipidemia Hypertension Surgical History Surgical History History of cardiac catheterization (~09/2010) Mild nonocclusive plaquing with approximately 20% stenosis in the proximal LAD and circumflex with mild anterolateral hypokinesis and an EF of 60%. Family History Family History Mother Hypertension Family history of coronary artery disease Father Family history of coronary artery disease Family history of premature coronary heart disease, Onset Age: 45 Social History Social History Social History: Surrogate decision maker: Madai Rocha, . Code status: Full code. Smoking status: Former smoker (< 10 pack years) Tobacco type: cigarettes Smoking end date: 10/12/10 Alcohol intake: never Substance use: never Lack of Transportation: No Lack of Food: Never True Current Housing: I Have Housing Concerned About Future Housing: No Difficulty Paying Gas/Electric Bills: No Difficulty Paying for Meds: No Currently Unemployed: No Education: Associate Degree Difficulty w/ Childcare or Family Care: No Living arrangements: with family Additional living arrangements comments: Lives in [place] with his and their children. Occupation/Education: occupation Additional occupation/education comments: Works in [employer]. Gender identity (if verbalized by the patient): Male Spiritual care concerns: No Exam Narrative: GENERAL: Well-appearing, well-nourished, and in no acute distress. Obese HEAD: Normocephalic, atraumatic. EYES: EOMI. No redness or drainage. Conjunctivae normal. ENT: Mucous membranes pink and moist. Nares clear. No rhinorrhea. TMs normal bilaterally. Throat normal. Uvula midline. Normal voice. Sinuses are nonTTP NECK: Normal AROM. Supple. No lymphadenopathy. CHEST: No respiratory distress. Clear to auscultation. HEART: Regular rate and rhythm. No murmur appreciated. Normal peripheral pulses. ABDOMEN: Soft, nontender, nondistended, normal active bowel sounds. MUSCULOSKELETAL: No bony tenderness. EXTREMITIES: Normal range of motion. No edema. SKIN: Warm, dry, no rash. Capillary refill normal. Normal skin turgor. NEURO: No focal deficits. Alert and oriented x3. Gait steady. PSYCH: Normal affect. No signs of depression or anxiety. Course Course Emergency Course: POC Flu/COVID not indicated given onset of sx > 72 hrs ago. No sore throat, afebrile--POC strep not indicated. Level of Care: Express Care Visit Vital Signs Vital signs: Vital Signs Temperature 98 F 09/27/25 19:16 Pulse Rate 86 09/27/25 19:16 Respiratory Rate 16 09/27/25 19:16 Blood Pressure 124/76 09/27/25 19:16 Pulse Oximetry 96 09/27/25 19:16 Temperature 98 F 09/27/25 19:16 Pulse Rate 86 09/27/25 19:16 Respiratory Rate 16 09/27/25 19:16 Blood Pressure 124/76 09/27/25 19:16 Pulse Oximetry 96 09/27/25 19:16 MDM Differential Diagnosis Differential Diagnosis: COVID, FLU, STREP, PNA, bronchitis, other viral URI Discharge Plan Discharge Clinical Impression: Upper respiratory infection Qualifiers: URI type: unspecified viral URI Qualified Code(s): J06.9 - Acute upper respiratory infection, unspecified Patient Disposition: Home Condition: Stable Instructions: Antibiotic Form, Viral Syndrome (ED) Additional Instructions: Go straight to ER should your symptoms become worse or should any new symptoms develop Patient Language: Lithuanian Prescriptions: New prednisone 20 mg tablet 40 mg PO DAILY 5 Days Qty: 10 0RF No Action aspirin 81 mg tablet,delayed release (DR/EC) 81 mg PO DAILY amlodipine 5 mg tablet 5 mg PO QAM Qty: 90 3RF atorvastatin 80 mg tablet 80 mg PO QHS Qty: 90 3RF fenofibrate 160 mg tablet 160 mg PO DAILY Qty: 90 3RF metoprolol succinate 25 mg tablet extended release 24 hr 25 mg PO DAILY Qty: 90 3RF nitroglycerin 0.4 mg tablet, sublingual See Rx Instructions .ROUTE .COMPLEX Qty: 25 1RF Dose Instruction: DISSOLVE ONE TABLET UNDER THE TONGUE EVERY 5 MINUTES NEEDED FOR CHEST PAIN. DO NOT EXCEED A TOTAL OF 3 DOSES IN 15 MINUTES Rx Instructions: DISSOLVE ONE TABLET UNDER THE TONGUE EVERY 5 MINUTES NEEDED FOR CHEST PAIN. DO NOT EXCEED A TOTAL OF 3 DOSES IN 15 MINUTES Follow-up/Referrals: Geraldine Paulino MD [Primary Care Provider, Family Practice] - 09/28/25 Time of Disposition: 19:15
[2025-09-27 19:16] VITALS: BP 124/76; PULSE 86; RESP 16; TEMP 36.6; O2SAT 96
== END 2025-09-27 19:45 | disposition home or self-care (01) ==
PROVIDERS: Emergency Provider Registered Nurse; PCP Family Medicine
DX: J06.9 Acute upper respiratory infection, unspecified (principal); I10 Essential (primary) hypertension; E78.5 Hyperlipidemia, unspecified; I25.10 Atherosclerotic heart disease of native coronary artery without angina pectoris; Z79.82 Long term (current) use of aspirin; Z87.891 Personal history of nicotine dependence
CPT/HCPCS: 99213; G0463